=== PATIENT | female | born 1975 | race Caucasian/White ===

== ENCOUNTER 2016-08-03 21:20 | Emergency (ER) | payer BC ==
--- NOTE | ~2016-08-03 | CR93 ---
[facility] Service of [facility] RADIOLOGY TEXT RESULTS PATIENT: RIANNA FRANKEL LOCATION: SED : 71 UNIT #: [id number] AGE: [address]: HEVER DIAZ SEX: F ORDER DR: [id number] [place] [id number] E MR#: [id number] Acc #: [id number] NAME: RIANNA FRANKEL : 1975 SEX: F STUDY DATE/TIME: 08/03/2016 21:38 UNIT: SED ROOM: STUDY DESCRIPTION: CR Elbow Min 3 Views Lt Attending Physician: Hever Diaz Ordering Physician: Martin Chau M.D. Primary Care Physician: Wang Escalona M.D. MEDICAL IMAGING REPORT This report is preliminary unless electronic signature is present. EXAM Left elbow. DATE OF EXAM 08/03/2016 HISTORY Patient fell while skating prior to arrival. TECHNIQUE 4 views the elbow were obtained. FINDINGS 4 views the elbow show a large joint effusion. There is a nondisplaced slightly impacted radial head fracture. The fracture is comminuted. The distal humerus is intact. IMPRESSION Mildly impacted and nondisplaced radial head fracture with a joint effusion. Dictated by... Stephane Puri M.D. THIS IS AN ELECTRONICALLY VERIFIED REPORT Stephane Puri M.D. at 08/04/2016 10:08 AM IVY/rowdy TD: 08/03/2016 23:14 JOB #: [id number] [facility] of [facility] RADIOLOGY TEXT RESULTS PATIENT: RIANNA FRANKEL LOCATION: SED : 71 UNIT #: [id number] AGE: [address]: HEVER DIAZ SEX: F ORDER DR: MEDICAL IMAGING REPORT Page 1 of 1
--- NOTE | ~2016-08-03 | CR132 ---
[facility] A Service of [facility] [place] RADIOLOGY TEXT RESULTS PATIENT: RIANNA FRANKEL LOCATION: SED : 71 UNIT #: [id number] AGE: [address]: HEVER DIAZ SEX: F ORDER DR: [id number] [address] [address] [id number] E MR#: [id number] Acc #: [id number] NAME: RIANNA FRANKEL : 1975 SEX: F STUDY DATE/TIME: 08/03/2016 21:38 UNIT: SED ROOM: STUDY DESCRIPTION: CR Forearm 2 View Lt Attending Physician: Hever Diaz Ordering Physician: Martin Chau M.D. Primary Care Physician: Wang Escalona M.D. MEDICAL IMAGING REPORT This report is preliminary unless electronic signature is present. EXAM Left forearm HISTORY Patient fell while skating. Injury occurred this evening. TECHNIQUE 2 views of the forearm were obtained. FINDINGS A radial head fracture is seen and was described on the elbow series report. The distal forearm is normal. No radiodense foreign bodies are seen. IMPRESSION Radial head fracture. Dictated by... Stephane Puri M.D. THIS IS AN ELECTRONICALLY VERIFIED REPORT Stephane Puri M.D. at 08/04/2016 10:08 AM IVY/ruy TD: 08/03/2016 23:07 JOB #: [id number] MEDICAL IMAGING REPORT Page 1 of 1
[~2016-08-03 21:20] MED LIST: BACITRACIN15 GM TP; DARVOCET-N 1001 TAB PO; IMITREX PO; KLONOPIN0.5 M3; LEXAPRO PO; ZOFRAN ODT4 MG PO
== END 2016-08-03 22:53 | disposition home or self-care (01) ==
LOC: SED 21:20
DX: S52.122A Displaced fracture of head of left radius, initial encounter for closed fracture (principal); F41.9 Anxiety disorder, unspecified; G43.909 Migraine, unspecified, not intractable, without status migrainosus; F17.210 Nicotine dependence, cigarettes, uncomplicated; Z88.1 Allergy status to other antibiotic agents; V00.131A Fall from skateboard, initial encounter; Y93.51 Activity, roller skating (inline) and skateboarding; Y92.331 Roller skating rink as the place of occurrence of the external cause
CPT/HCPCS: 29280; 73080; 73090; 99284